=== PATIENT | female | born 1960 | race Two or more races ===

== ENCOUNTER 2021-05-18 15:14 | Outpatient (CLI) | payer OTHER | END 2021-05-18 15:18 | disposition home or self-care (01) | LOC: MAMO-SONO 15:14 | PROVIDERS: ATTEND General Practice | DX: N60.11 Diffuse cystic mastopathy of right breast (principal); N60.12 Diffuse cystic mastopathy of left breast; N64.89 Other specified disorders of breast; Z12.31 Encounter for screening mammogram for malignant neoplasm of breast ==